=== PATIENT | male | born 1930 | race Caucasian/White ===

== ENCOUNTER 2016-10-06 05:16 | Day surgery (SDC) | payer OTHER ==
[~2016-10-06] VITALS: Ht 172.7 cm; Wt 48.5 kg
--- NOTE | ~2016-10-06 | O ---
[facility] [place] [address] OPERATIVE REPORT Name: WLID SHRESTHA Room #: [id number] Admission: 10/06/16 Attend Phys: Wild Tello MD Discharge: 10/06/16 Date of : 34 Report #: [id number] THIS REPORT FOR: //name// CC: FAM unknown Wild Tello DATE OF SERVICE: 10/06/2016 STUD MASTER/MISTRESS: None. PREOPERATIVE DIAGNOSIS: Bilateral lower lid entropion. POSTOPERATIVE DIAGNOSIS: Bilateral lower lid entropion. OPERATION PERFORMED: Bilateral lower lid entropion repair. ANESTHESIA: Local with IV sedation. COMPLICATIONS: None. INDICATIONS FOR PROCEDURE: This patient has bilateral lower lid entropion with chronic irritation and discharge. The current procedures are being undertaken in order to improve the patient's level of comfort and visual function. Informed consent was obtained to include but not limited to the loss of vision, bleeding, infection, scarring, failure to improve the problem and need for further surgery. DESCRIPTION OF OPERATION: The patient was taken to the operating room, where 2% Xylocaine with epinephrine mixed with equal parts of 0.75% Marcaine with Wydase was administered transcutaneously and transconjunctivally to each lower lid and lateral canthal area. The patient was then prepped and draped in the usual sterile fashion. A Romina clamp was used to clamp the left lateral canthus, following which a sharp canthotomy and cantholysis were performed. Hemostasis was achieved with a monopolar cautery, as it was throughout the case. A tarsal strip was prepared laterally, removing the lash bearing portion of the redundant lid margin and the redundant tarsal plate. A transconjunctival dissection was then undertaken just inferior to the lower border of the tarsal plate. The lower lid retractors were disinserted from the inferior border of the tarsal plate. The lower lid retractors were then advanced and reattached to the anterior surface of the tarsal plate with mattress 5-0 chromic sutures passed transconjunctivally and secured in the infraciliary margin. The tarsal strip was then secured laterally with 2 interrupted 5-0 Prolene sutures. The subcutaneous structures and the skin were then closed with multiple interrupted 6-0 plain gut sutures so the lateral canthal angle was sharply reformed. The [address] [address] OPERATIVE REPORT Name: WILD SHRESTHA Room #: DEP [facility]#: [id number] Admission: 10/06/16 Attend Phys: Wild Tello MD Discharge: 10/06/16 Date of : 34 Report #: [id number] wounds were then cleaned and dressed with ophthalmic antibiotic ointment. The patient was then transported to the recovery area, having tolerated the procedure well with no anesthetic or operative complications being noted. <ELECTRONICALLY SIGNED> By: Wild Tello MD 10/14/16 [id number] MD pacheco Omer
[~2016-10-06 05:16] MED LIST: COLACE100 MG PO; MELATONIN PO; PRINIVIL20 MG PO; REFRESH TEARS15 ML OPHTHALMIC; TYLENOL325 MG PO; VITAMIN D31000 UNI2 PO; ZANTAC 150MG T150 M1 PO
[2016-10-06 14:00] VITALS: BP 169/67
== END 2016-10-06 17:25 | disposition home or self-care (01) ==
LOC: TBA 05:16 → OR 05:16 → TBA 05:17 → OR 10:05
DX: H02.002 Unspecified entropion of right lower eyelid (principal); H02.005 Unspecified entropion of left lower eyelid; Z87.891 Personal history of nicotine dependence; I10 Essential (primary) hypertension; Z85.89 Personal history of malignant neoplasm of other organs and systems; Z90.49 Acquired absence of other specified parts of digestive tract; Z98.890 Other specified postprocedural states; K21.9 Gastro-esophageal reflux disease without esophagitis
CPT/HCPCS: 50010; 50101; 50386; 50398; 51636; 56527; 56531; 62110; 62850; 70005